=== PATIENT | male | born 2000 | race African-American/Black ===

== ENCOUNTER 2021-01-09 12:35 | Emergency (ER) | payer SELFPAY ==
[~2021-01-09] VITALS: Ht 182.9 cm; Wt 78.0 kg
[2021-01-09 12:38] VITALS: BP 160/90
== END 2021-01-09 19:19 | disposition left against medical advice (07) ==
LOC: ER 12:35
DX: Z53.21 Procedure and treatment not carried out due to patient leaving prior to being seen by health care provider (principal)